=== PATIENT | female | born 1955 | race Caucasian/White ===

== ENCOUNTER 2017-09-19 14:24 | Outpatient (CLI) | payer MEDICARE | END 2017-09-19 14:25 | disposition home or self-care (01) | LOC: BICMAMMO 14:24 | PROVIDERS: ATTEND Family Medicine | DX: Z12.31 Encounter for screening mammogram for malignant neoplasm of breast (principal); Z80.3 Family history of malignant neoplasm of breast | CPT/HCPCS: 77063; 77067 ==

== ENCOUNTER 2018-11-23 10:53 | Outpatient (CLI) | payer MEDICARE ==
--- NOTE | 2018-11-23 15:13 | MRI ---
MR ANGIOGRAPHY OF CEREBRAL CIRCULATION: Time of flight imaging performed for MR angiography study of cerebral circulations. INDICATION: Headache. FINDINGS: The intracranial internal carotid arteries appear patent and symmetric. Anterior cerebral arteries, middle cerebral arteries, and posterior cerebral arteries appear patent and symmetric. No focal sten osis or occlusion identified. No evidence of aneurysm. IMPRESSION: Unremarkable MR angiography of cerebral circulation. POS: [facility]
== END 2018-11-23 10:54 | disposition home or self-care (01) ==
LOC: SCSMRI 10:53
PROVIDERS: ATTEND Psychiatry & Neurology Neurology
DX: G44.1 Vascular headache, not elsewhere classified (principal)
CPT/HCPCS: 70544

== ENCOUNTER 2019-09-06 08:34 | Outpatient (CLI) | payer MEDICARE, OTHER ==
--- NOTE | 2019-09-06 09:23 | RAD ---
EXAM: XR Cerv Sp Ap Lat STANDARD PROVIDED CLINICAL HISTORY: Chronic neck pain with radiation of pain to head and right shoulder. COMPARISON: None FINDINGS: Neutral as well as flexion and extension views cervical spine are provided. C1-C7 is seen on the late ral view. T1 vertebral body is obscured. Vertebral body heights are within normal limits. No fracture or subluxation is seen on lateral views. Degenerative changes are seen in the cervical spine primarily at the C4-5 and C5-C6 levels with narrowing of the intervertebral disc spaces and mild endplate degenerative changes as well as osteophyte formation at these levels. Prominent anterior ost eophyte Is seen at the anterior inferior endplate of the C4 vertebral body. Interspinous distances are within normal limits. Prevertebral soft tissues have a normal appearance. IMPRESSION: Degenerative changes in the mid cervical spine, but no fracture or subluxation is seen on provided la teral images.
--- NOTE | 2019-09-06 09:56 | MRI ---
MRI Cervical spine without contrast: HISTORY: Chronic neck pain with radiation of pain to top of head and into right shoulder. No known trauma. COMPARISON: Liver 16 2014 FINDINGS: There are increased T2-weighted signal intensity foci seen within the region of each basal ganglia an d in the caesar which are not well evaluated on this exam but are likely reflective of lacunar infarctions of indeterminate age. The craniocervical junction is unremarkable. No significant cord signal abnormality. Paravertebral soft tissues have a normal appearance and normal signal intensity. Multilevel degenerative changes are seen in the cervical spine. C1-2:There are degenerative changes seen at the articulation of the odontoid with the anterior arch o f C1. However, there is no significant narrowing of the central spinal canal at this level. C2-3: Small central disc protrusion is present which results in slight effacement of the ventral suba rachnoid space. Neural foramina are patent. C3-4: Minimal disc osteophyte complex is present. No significant central canal or neural foraminal na rrowing. C4-5: Loss of intervertebral disc height is present. Disc osteophyte complex is again noted which craven s appear slightly progressed from the prior exam. Moderate central canal narrowing is present. Mild right and mild to moderate left-sided neural foraminal narrowing is present. C5-6: There is intervertebral disc height loss with disc osteophyte complex seen. This is also slight ly progressed when compared to the prior exam. Generalized mild narrowing of the central spinal canal is present with slight flattening of the anterior aspect of the spinal cord. Mild bilateral herson ral foraminal narrowing is present. C6-7: Mild loss of intervertebral disc height with disc osteophyte complex is again seen. This result s in effacement of the ventral subarachnoid space. Facet degenerative changes are seen on the left as well as uncinate process hypertrophy. Right neural foramen is patent, but there is mild left-sided neural foraminal narrowing. C7-T1: There is no disc bulge or disc herniation. The central spinal canal and neural foramina are pa tent. IMPRESSION: 1. Disc degenerative changes greatest at C4-5 and C5-C6 levels which does result in [id number] degrees of left-sided neural foraminal narrowing with mild right-sided neural foraminal narrowing at these levels. 2. Indeterminate age lacunar infarctions in each basal ganglia and in the caesar.
== END 2019-09-06 08:35 | disposition home or self-care (01) ==
LOC: SCSMRI 08:34
PROVIDERS: ATTEND Nurse Practitioner Family
DX: M47.22 Other spondylosis with radiculopathy, cervical region (principal); M50.121 Cervical disc disorder at C4-C5 level with radiculopathy; M48.02 Spinal stenosis, cervical region
CPT/HCPCS: 72040; 72141

== ENCOUNTER 2019-09-11 10:09 | Outpatient (CLI) | payer MEDICARE ==
--- NOTE | 2019-09-11 10:39 | MMO ---
Bilateral MAMMO Bilat Screen [facility]. CLINICAL HISTORY: Patient is 64 years old and is seen for screening. The patient has the following family history of breast cancer: mother, at age 70. The patient has no personal history of cancer. VIEWS: The views performed were: bilateral craniocaudal with tomosynthesis and bilateral mediolateral oblique with tomosynthesis. FILMS COMPARED: The present examination has been compared to prior imaging studies performed at [facility] on 12/10/2013, 05/06/2015, 05/13/2016 and 09/19/2017. This study has been interpreted with the assistance of computer-aided detection. MAMMOGRAM FINDINGS: There are scattered fibroglandular densities. Benign calcifications are noted bilaterally. There is a new nodule in the right 12:00 breast (Not a mole per mammo tech) In the left breast, there are no suspicious masses, calcifications or areas of architectural distortion. IMPRESSION: FINDING IN THE RIGHT BREAST REQUIRES ADDITIONAL EVALUATION. AN ULTRASOUND EXAM IS RECOMMENDED. THE RESULTS OF THIS EXAM WERE SENT TO THE PATIENT. ACR BI-RADS Category 0 - Incomplete: Need additional imaging evaluation. [facility] will notify the patient of the need for additional imaging services. MAMMOGRAPHY NOTE: 1. A negative mammogram report should not delay a biopsy if a dominant of clinically suspicious mass is present. 2. Approximately 10% to 15% of breast cancers are not detected by mammography. 3. Adenosis and dense breasts may obscure an underlying neoplasm. Reported by: BRENDA MARTIN MD Electonically Signed: [id number]
== END 2019-09-11 10:10 | disposition home or self-care (01) ==
LOC: BICMAMMO 10:09
PROVIDERS: ATTEND Family Medicine
DX: Z12.31 Encounter for screening mammogram for malignant neoplasm of breast (principal); Z80.3 Family history of malignant neoplasm of breast
CPT/HCPCS: 77063; 77067

== ENCOUNTER 2020-07-14 10:21 | Outpatient (CLI) | payer MEDICARE ==
--- NOTE | 2020-07-14 10:45 | RAD ---
XR Shoulder Lt 3 View STANDARD History: Shoulder pain Comparison: None. Findings: Mild flattening of the left humeral head with large inferior osteophyte formation. No acute displaced fracture or malalignment. IMPRESSION: Moderate glenohumeral joint degenerative changes.
== END 2020-07-14 10:22 | disposition home or self-care (01) ==
LOC: BICRAD 10:21
PROVIDERS: ATTEND Nurse Practitioner Family
DX: M25.512 Pain in left shoulder (principal); M19.012 Primary osteoarthritis, left shoulder

== ENCOUNTER 2021-09-02 11:10 | Outpatient (CLI) | payer MEDICARE | END 2021-09-02 11:11 | disposition home or self-care (01) | LOC: BICMAMMO 11:10 | PROVIDERS: ATTEND Family Medicine | DX: Z12.31 Encounter for screening mammogram for malignant neoplasm of breast (principal); Z80.3 Family history of malignant neoplasm of breast | CPT/HCPCS: 77063; 77067 ==

== ENCOUNTER 2022-07-11 14:00 | Emergency (ER) | payer OTHER | END 2022-07-11 16:35 | disposition home or self-care (01) | LOC: ERS 14:00 | DX: S42.251A Displaced fracture of greater tuberosity of right humerus, initial encounter for closed fracture (principal); I10 Essential (primary) hypertension; W01.0XXA Fall on same level from slipping, tripping and stumbling without subsequent striking against object, initial encounter ==

== ENCOUNTER 2022-08-07 00:55 | Inpatient (IN) | payer OTHER ==
[2022-08-07] MEDS ORDERED: Morphine 4 MG/ML VIAL ONE (01:26)
[2022-08-07] MEDS ORDERED: Ketorolac Tromethamine 30 MG/ML VIAL ONE (01:27)
[2022-08-07] MEDS ORDERED: niCARdipine 25 MG/10 ML VIAL ONE ×2 (03:05→03:08)
[2022-08-07] MEDS ORDERED: Ipratropium/Albuterol 3 ML NEB NEB PRN (03:25)
[2022-08-07] MEDS ORDERED: TETANUS, DIPHTHERIA TOX,ADULT (TDVAX) 0.5 ML VIAL IM ONE (03:25)
[2022-08-07] MEDS ORDERED: Ondansetron PF 4 MG/2 ML Vial IVP PRN (03:25)
[2022-08-07] MEDS ORDERED: Sodium Chloride 0.9% 1,000 ML IV SCH (03:30)
[2022-08-07 03:45] VITALS: BMI 34.0
[2022-08-07] MEDS ORDERED: niCARdipine 25 MG in Sodium Chloride 0.9% 250 ML 250 ML IVPB SCH (03:45)
[2022-08-07 04:14] LABS: #Basophils 0.1 thou/uL (0.0-0.2); #Eosinphils 0.2 thou/uL (0.0-0.7); #Lymphocytes 3.3 thou/uL (1.20-3.40); #Monocytes 0.8 thou/uL (0.11-0.59); %Basophils 0.6 % (0.0-1.0); %Eosinophils 1.3 % (0.0-10.0); %Lymphocytes 24.6 % (21.0-51.0); %Monocytes 6.2 % (0.0-10.0); %Neutrophils 67.3 % (42.0-75.0); Hemoglobin 14.9 g/dL (12.0-16.0); Mean Corpuscular HGB CONC 33.4 g/dL (32.0-36.0); Mean Corpuscular Hemoglobin 31.2 pg (27.0-31.0); Mean Corpuscular Volume 93.4 fl (78.0-98.0); Mean Platelet Volume 10.2 fL (7.4-10.4); Platelet Count 254 10x3/uL (130-400); RBC Distribution Width 13.2 % (11.5-14.5); Red Blood Cell (RBC) Count 4.77 mill/uL (4.20-5.40); White Blood Cell (WBC) Count 13.3 10x3/uL (4.8-10.8)
[2022-08-07 04:16] LABS: INR-International Normal Ratio 0.9; PTT 27.4 sec (22.9-36.1); Prothrombin Time 12.1 sec (12.0-14.7)
[2022-08-07 04:25] LABS: ALT (SGPT) 31 U/L (8-55); AST (SGOT) 42 U/L (5-34); Albumin 3.9 g/dL (3.4-4.8); Alkaline Phosphatase 153 U/L (40-110); Anion Gap 18 mmol/L (10-20); BUN (Urea Nitrogen) 12 mg/dL (9.8-20.1); Bilirubin, Total 0.3 mg/dL (0.2-1.2); Calc. Creatinine Clearance 91 mL/min (70-130); Calcium 9.7 mg/dL (7.8-10.44); Carbon Dioxide 24 mmol/L (23-31); Chloride 100 mmol/L (98-107); Estimated GFR 89; Glucose 106 mg/dL (80-115); Potassium 4.8 mmol/L (3.5-5.1); Protein, Total 7.9 g/dL (5.8-8.1); Sodium 137 mmol/L (136-145)
[2022-08-07] MEDS: Acetaminophen 500 MG TAB PO SCH ×2 (06:20→12:10)
[2022-08-07] MEDS ORDERED: Famotidine/PF 20 mg/2ml Vial SLOW IVP SCH (09:00)
[2022-08-07] MEDS ORDERED: Lisinopril 10 MG TAB PO SCH (09:00)
[2022-08-07 11:38] VITALS: BP 103/83
[2022-08-07 11:48] VITALS: TEMP 98.3
== END 2022-08-07 12:20 | disposition home or self-care (01) | DRG 86 ==
LOC: ERS 00:55 → CCU 03:03
PROVIDERS: ADMIT Surgery; ATTEND Surgery
DX: S06.5X0A Traumatic subdural hemorrhage without loss of consciousness, initial encounter (principal); I16.1 Hypertensive emergency; R40.2412 Glasgow coma scale score 13-15, at arrival to emergency department; W01.0XXA Fall on same level from slipping, tripping and stumbling without subsequent striking against object, initial encounter; I10 Essential (primary) hypertension; E03.9 Hypothyroidism, unspecified; F31.9 Bipolar disorder, unspecified; F41.9 Anxiety disorder, unspecified; Z79.899 Other long term (current) drug therapy; Z90.89 Acquired absence of other organs; Z98.890 Other specified postprocedural states
CPT/HCPCS: 70450; 80053; 85025; 85610; 85730; 96372; J1885; J2270; J7050; S0028

== ENCOUNTER 2022-09-09 08:57 | Outpatient (CLI) | payer OTHER | END 2022-09-09 08:58 | disposition home or self-care (01) | LOC: BICCT 08:57 | PROVIDERS: ATTEND Physician Assistant Surgical | DX: S06.5X0D Traumatic subdural hemorrhage without loss of consciousness, subsequent encounter (principal) | CPT/HCPCS: 70450 ==

== ENCOUNTER 2023-06-08 11:58 | Outpatient (CLI) | payer OTHER | END 2023-06-08 11:59 | disposition home or self-care (01) | LOC: BICMAMMO 11:58 | PROVIDERS: ATTEND Family Medicine | DX: Z12.31 Encounter for screening mammogram for malignant neoplasm of breast (principal); Z80.3 Family history of malignant neoplasm of breast | CPT/HCPCS: 77063; 77067 ==